=== PATIENT | female | born 1945 | race Caucasian/White ===

== ENCOUNTER 2016-10-30 13:56 | Emergency (ER) | payer OTHER ==
[~2016-10-30 13:56] MED LIST: CELEXA20 MG PO; FENOFIBRATE145 MG PO; PHENERGAN25 M1 PO; PROBIOTIC COMP1 EACH PO; WOMEN'S DAILY1 EACH PO; XANAX0.5 MG PO; ZETIA10 MG PO; ZOFRAN4 MG PO
== END 2016-10-30 15:05 | disposition home or self-care (01) ==
LOC: ER 13:56
DX: M25.462 Effusion, left knee (principal); F32.9 Major depressive disorder, single episode, unspecified; K21.9 Gastro-esophageal reflux disease without esophagitis; Z90.710 Acquired absence of both cervix and uterus; Z90.49 Acquired absence of other specified parts of digestive tract; Z88.6 Allergy status to analgesic agent